=== PATIENT | male | born 1970 | race Caucasian/White ===

== ENCOUNTER → 2018-12-07 | Day surgery (SDC) | payer BC, OTHER ==
[~2018-12-07] MED LIST: LIDOCAINE HCL 1% MPF 30 SOL ONE; PROPOFOL 500 MG/50 ML EMU IV ONE
[2018-12-07 09:38] VITALS: O2SAT 98
[2018-12-07 09:53] VITALS: BP 106/67; PULSE 59; RESP 12; TEMP 97.5
== END | disposition home or self-care (01) ==
LOC: SURG 08:18
PROVIDERS: ATTEND Surgery
DX: Z12.11 Encounter for screening for malignant neoplasm of colon (principal)
CPT/HCPCS: J2001; J2704